=== PATIENT | female | born 1970 | race Caucasian/White ===

== ENCOUNTER 2020-03-24 17:59 | Emergency (ER) | payer OTHER, SELFPAY ==
--- NOTE | 2020-03-24 17:54 | ECG_ITS ---
APPROVED REPORT Exam: Resting ECG HR:84 bpm ECG Measurements Heart Rate 84 AXES [place] 162 P 14 QRSd 82 QRS 26 QT 358 T 42 QTc 423 <Conclusion> Normal sinus rhythm Normal ECG Electronically signed by : Johnie Morris, 03/27/2020 07:08:29
[2020-03-24 17:59] VITALS: BP 158/91; BP 199/115; PULSE 82; PULSE 88; RESP 20; TEMP 36.9; O2SAT 98; O2SAT 99; BMI 36.0
--- NOTE | 2020-03-24 18:09 | XR_ITS ---
PROCEDURE: XR CHEST 2V CLINICAL HISTORY: chest pain Chest pain and shortness of air COMPARISON: No exams were available for comparison FINDINGS: The cardiomediastinal silhouette and pulmonary vascularity are within normal limits. The lungs are clear without infiltrates, suspicious nodules, or pleural effusions. No acute bony abnormalities. IMPRESSION: No acute findings. Dictated by: Jarvis Downs MD 03/25/2020 04:57 Jarvis Downs MD in [place] 03/25/2020 04:57
--- NOTE | 2020-03-24 18:13 | PC.NURSE ---
PT TOOK 2 - 325 MG ASA PROIR TO ARRIVING AT HOSP
[2020-03-24 18:29] VITALS: BP 168/90; PULSE 84; RESP 20; O2SAT 98
--- NOTE | 2020-03-24 18:29 | [facility].EDGENADL ---
ED Disposition Clinical Impression: Chest pain Qualifiers: Chest pain type: unspecified Qualified Code(s): R07.9 - Chest pain, unspecified Disposition: Home, Self-Care Condition on Discharge: Good Referrals: PCP,No [Primary Care Provider] - - Critical Care Critical Care Time: No Attestation: On , the high probability of a clinically significant, sudden or life threatening deterioration of the following system(s) required my full and direct attention, intervention and personal management. The time I documented below is in addition to time spent performing reported procedures but includes the following listed in this critical care notation. Medical Decision Making - Christian Inquiry Pt receiving controlled substance: No Vital Signs: 03/24/20 17:59 03/24/20 18:29 03/24/20 19:37 Temperature 98.4 F Temperature Source Oral Pulse Rate [Left Radial] 82 84 60 Respiratory Rate 20 20 18 Blood Pressure [Right Arm] 158/91 H 168/90 H 164/90 H Blood Pressure Mean [Right Arm] 113 116 114 Blood Pressure Source [Right Arm] Automatic Cuff Blood Pressure Position [Right Arm] Sitting 02 Sat by Pulse Oximetry 98 98 98 Oxygen Delivery Method Room Air Room Air 03/24/20 20:30 Temperature Temperature Source Pulse Rate [Left Radial] 73 Respiratory Rate 18 Blood Pressure [Right Arm] 179/93 H Blood Pressure Mean [Right Arm] 121 Blood Pressure Source [Right Arm] Blood Pressure Position [Right Arm] 02 Sat by Pulse Oximetry 100 Oxygen Delivery Method - Lab Data Lab Results 03/24/20 18:10: WBC 8.4, RBC 4.04 L, Hgb 13.0, Hct 39.4, MCV 97.5, MCH 32.1 H, MCHC 33.0, RDW 12.8, Plt Count 395, MPV 7.0 L, Neut % (Auto) 67.2, Lymph % (Auto) 23.9, [place] % (Auto) 6.1, Eos % (Auto) 2.4, Baso % (Auto) 0.4, Neut # (Auto) 5.6, Lymph # (Auto) 2.0, [place] # (Auto) 0.5, Eos # (Auto) 0.2, Baso # (Auto) 0.0 03/24/20 18:10: Sodium 140, Potassium 3.7, Chloride 106, Carbon Dioxide 26, Anion Gap 11.7, BUN 14, Creatinine 0.60, Estimated Creat Clear 167, Estimated GFR 105, Est GFR ( Amer) 128, Glucose 87, Calcium 9.1, Troponin I < 0.01 03/24/20 21:05: Troponin I < 0.01 Result diagrams: 03/24/20 18:10 03/24/20 18:10 Orders (Tests/Meds): ED MEDICATIONS Generic Name Dose Route Start Last Admin Trade Name Freq PRN Reason Stop Dose Admin Lactated Ringer's 1,000 mls @ 999 mls/hr 03/24/20 18:15 03/24/20 18:17 Lactated Ringer's 1000 Ml Bag IV 03/24/20 19:15 999 mls/hr .[id number] AMANDA Administration Discontinued Medications Generic Name Dose Route Start Last Admin Trade Name Freq PRN Reason Stop Dose Admin Belladonna Alkaloids 60 ml 03/24/20 18:10 03/24/20 18:17 Gi Cocktail 60ml Udc PO 03/24/20 18:11 60 ml ONCE ONE Administration ORDERS Category Date Time Status CXR 2 view (NOT portable) [XR chest 2V] Stat Exams 03/24/20 18:09 Taken Troponin I Q3H Lab 03/25/20 00:15 Ordered Medical Decision Narrative: At this point, the exact cause of the patient's current symptom complex is unknown. Initial EKG is nondiagnostic and initial delta troponin testing protocols are within normal limits. At the present time, I doubt pulmonary embolus secondary to the lack of tachycardia, tachypnea, or hypoxia. . Similarly, I doubt aortic dissection or abdominal aortic aneurysm secondary to history and description of pain, the patient's nonfocal vascular examination in all four extremities, and CXR unremarkable for signs of mediastinal widening. Doubt pneumothorax given good bilateral breath sounds and chest X ray with good lung markings out to the periphery. No signs suggestive of pneumonia on history or physical exam as well. General Adult HPI - General Chief complaint: Chest Pain Stated complaint: Chest pain Time Seen by Provider: 03/24/20 19:27 Mode of Arrival: Ambulatory Limitations: No Limitations Description of Symptoms (Recalled from ER Triage Doc. by RN): Pt states that she is feeling SOA with center chest pain
[2020-03-24 18:46] LABS: Basophils % 0.4 % (0.1-2.0); Eosinophils # 0.2 K/mm3 (0.0-0.4); Eosinophils % 2.4 % (0.1-12.0); Hematocrit 39.4 % (37.0-47.0); Lymphocytes % 23.9 % (10-50); Mean Corpuscular Hemoglobin 32.1 pg (27.0-31.2); Mean Corpuscular Volume 97.5 fl (81-99); Monocytes # 0.5 K/mm3 (0.1-1.0); Monocytes % 6.1 % (1.7-9.3); Neutrophils # 5.6 K/mm3 (1.8-7.8); Neutrophils % 67.2 % (37.0-80.0); Platelet Count 395 K/mm3 (142-424); Red Blood Count 4.04 M/mm3 (4.20-5.40); Red Cell Distribution Width 12.8 % (11.5-17.5); White Blood Count 8.4 K/mm3 (4.8-10.8)
[2020-03-24 18:50] LABS: Chloride 106 mmol/L (98-107); Potassium 3.7 mmoL/L (3.5-5.1); Sodium 140 mmol/L (136-145)
[2020-03-24 18:53] LABS: Anion Gap 11.7 mEq/L (5-15); Blood Urea Nitrogen 14 mg/dl (7-17); Calcium 9.1 mg/dl (8.4-10.2); Carbon Dioxide 26 mmol/L (22.0-30.0); Creatinine Clearance Estimated 167 mL/min (50-200); Estimated Glomerular Filt Rate 105 ml/min (>60); GFR (African American) 128 ML/MIN (>60); Glucose 87 mg/dl (74-100)
[2020-03-24 19:36] LABS: Troponin I < 0.01 ng/ml (0.00-0.034)
[2020-03-24 19:37] VITALS: BP 164/90; PULSE 60; RESP 18; O2SAT 98
[2020-03-24 20:30] VITALS: BP 179/93; PULSE 73; RESP 18; O2SAT 100
--- NOTE | 2020-03-24 21:52 | PC.NURSE ---
called the lab for troponin status. lab stated 4 minutes.
[2020-03-24 21:58] LABS: Troponin I < 0.01 ng/ml (0.00-0.034)
[2020-03-24 22:16] VITALS: BP 164/88; PULSE 72; RESP 14; TEMP 36.9; O2SAT 98
== END 2020-03-24 22:19 | disposition home or self-care (01) ==
PROVIDERS: Emergency Provider Emergency Medicine
DX: R07.9 Chest pain, unspecified (principal)
CPT/HCPCS: 71046; 80048; 84484; 85025; 93005; 96365; 99284